=== PATIENT | female | born 1975 | race Caucasian/White ===

== ENCOUNTER 2018-12-02 14:11 | Emergency (ER) | payer BC ==
[2018-12-02 16:14] LABS: ABS Basophils 0.1 10^3/ul (0-0.2); ABS Eosinophils 0.2 10^3/ul (0-0.6); ABS Lymphocytes 2.1 10^3/ul (1.0-4.8); ABS Monocytes 0.4 10^3/ul (0-0.8); ABS Neutrophils 4.5 10^3/ul (1.5-7.7); Eosinophil % 3.3 %; Hematocrit 36 % (35-47); Hemoglobin 11.7 g/dL (12.0-16.0); Lymphocyte % 28.4 %; Mean Corpuscular HGB Conc 33 g/dL (31-36); Mean Corpuscular Hemoglobin 25 pg (27-31); Mean Corpuscular Volume 78 fL (80-97); Mean Platelet Volume 8.4 fL (7.4-10.4); Nucleated Red Blood Cells % 0.1; Platelet Count 253 10^3/uL (150-450); Red Blood Count 4.62 10^6 /uL (3.70-4.87); Red Cell Distribution Width 17 % (10-15); White Blood Count 7.3 10^3/uL (3.5-10.8)
[2018-12-02 16:31] LABS: Albumin 4.5 g/dL (3.2-5.2); Albumin/Globulin Ratio 1.6 (1-3); BUN/Creatinine Ratio 10.5 (8-20); Calcium 9.3 mg/dL (8.6-10.3); EGFR Non-African American 83.5 (>60); Globulin 2.9 g/dL (2-4); Potassium 4.4 mmol/L (3.5-5.0); Total Bilirubin 0.3 mg/dL (0.2-1.0); Total Protein 7.4 g/dL (6.4-8.9)
--- NOTE | 2018-12-02 16:48 | ED ---
Headache - HPI Summary HPI Summary: The patient is a 43 y/o F presenting to [facility] with a chief complaint of gradual onset and intermittent HAs for the last 2-3 weeks. She reports that, upon initial symptoms beginning, she was at work and had a sudden, severe BENITEZ in the temples that eventually became diffuse, and she also became lightheaded, tremulous, and nauseated. The next day, she still had a BENITEZ, so she visited her PCP, and was given Imitrex, but then had to continue with Excedrin, which did help to alleviate the pain. Then she woke up the next morning with another headache, but this time there were visual changes in addition to the other symptoms, in which she could see light out of the left eye, but she was unable to visualize any objects. She was then dx with migraines. After about a week had passed without a BENITEZ, she had another BENITEZ with the same symptoms as before without the visual changes, which has persisted into now. She additionally c/o numbness in the face when the HAs are occurring. She denies photophobia, neck pain, fever, chills, erythema of eyes, sore throat, CP, SOB, cough, abdominal pain, N/V, dysuria, hematuria, myalgia, edema, rash, or dizziness. The dull pain is currently rated 5/10 in severity. Medications include progesterone. Hx of DM (when younger), glasses. FHx of cardiac disease, HTN, DM. Current every day smoker, no EtOH, no substance use. - History Of Current Complaint Chief Complaint: EDHeadache Stated Complaint: HEADACHE PER PT Time Seen by Provider: 12/02/18 15:28 Hx Obtained From: Patient Onset/Duration: Gradual Onset, Started weeks ago, Still Present Initially Headache Was: Moderate Currently Pain Is: Current Pain Scale(0-10)= - 5 Timing: Weeks Character: Throbbing Location of Headache: Diffuse Aggravating Factor: Nothing Allevating Factors: Other (Noted In Comments) - Excedrin to some relief Associated Signs And Symptoms: Other (Noted In Comments) - POSITIVE: visual changes, numbness in face with HAs; NEGATIVE: photophobia, neck pain, fever, chills, erythema of eyes, sore throat, CP, SOB, cough, abdominal pain, N/V, dysuria, hematuria, myalgia, edema, rash, dizziness - Allergies/Home Medications Allergies/Adverse Reactions: Allergies Allergy/AdvReac Type Severity Reaction Status Date / Time acetaminophen Allergy Headache Verified 12/02/18 14:21 [From Darvocet-N] propoxyphene Allergy Headache Verified 12/02/18 14:21 [From Darvocet-N] Home Medications: Home Medications SUMAtriptan succinate [Sumatriptan Succinate] 100 mg PO DAILY 12/02/18 [History Confirmed 12/02/18] PMH/Surg Hx/FS Hx/Imm Hx Endocrine/Hematology History: Reports: Hx Diabetes - no meds (diet controlled) Cardiovascular History: Denies: Hx Hypertension Sensory History: Reports: Hx Contacts or Glasses Opthamlomology History: Reports: Hx Contacts or Glasses - Surgical History Surgical History: Yes Surgery Procedure, Year, and Place: gastric bypass, cholecystectomy, ovarian cyst removal Infectious Disease History: No Infectious Disease History: Denies: Traveled Outside the [place] in Last 30 Days - Family History Known Family History: Positive: Cardiac Disease - father side, CAD, Hypertension , Diabetes, Other - [place] - Social History Alcohol Use: None Hx Substance Use: No Substance Use Type: Reports: None Hx Tobacco Use: Yes Smoking Status (MU): Current Every Day Smoker Review of Systems Positive: Other - tremulous. Negative: Fever, Chills Positive: Other - visual changes in left eye. Negative: Photophobia, Erythema Negative: Sore Throat Negative: Chest Pain Negative: Shortness Of Breath, Cough Positive: Nausea. Negative: Abdominal Pain, Vomiting Negative: dysuria, hematuria Positive: Other - NEGATIVE: neck pain. Negative: Myalgia, Edema Negative: Rash Neurological: Other - POSITIVE: lightheadedness; NEGATIVE: dizziness Positive: Headache, Numbness - during BENITEZ All Other Systems Reviewed And Are Negative: Yes Physical Exam - Summary Physical Exam Summary: Constitutional: Well-developed, Well-nourished, Alert. (-) Distressed Skin: Warm, Dry HENT: Normocephalic; Atraumatic Eyes: Conjunctiva normal Neck: Musculoskeletal ROM normal neck. (-) JVD, (-) Stridor, (-) Tracheal deviation Cardio: Rhythm regular, rate normal, Heart sounds normal; Intact distal pulses; The pedal pulses are 2+ and symmetric. Radial pulses are 2+ and symmetric. (-) Murmur Pulmonary/Chest wall: Effort normal. (-) Respiratory distress, (-) Wheezes, (-) Rales Abd: Soft. (-) Tenderness, (-) Distension, (-) Guarding, (-) Rebound Musculoskeletal: (-) Edema Lymph: (-) Cervical adenopathy Neuro: Alert, Oriented x3, Strength normal, Cranial nerves II-XII are grossly intact. (-) Dysmetria, (-) Nystagmus, (-) Ataxia by finger to nose testing, (-) Sensory deficit. GCS: 15. Psych: Mood and affect Normal Triage Information Reviewed: Yes Vital Signs On Initial Exam: Initial Vitals Temp Pulse Resp BP Pulse Ox 98.4 F 66 18 126/72 100 12/02/18 14:20 12/02/18 14:20 12/02/18 14:20 12/02/18 14:20 12/02/18 14:20 Vital Signs Reviewed: Yes - Sterling Coma Scale Best Eye Response: 4 - Spontaneous Best Motor Response: 6 - Obeys Commands Best Verbal Response: 5 - Oriented Coma Scale Total: 15 Diagnostics - Vital Signs Vital Signs Temp Pulse Resp BP Pulse Ox 12/02/18 14:20 98.4 F 66 18 126/72 100 - Laboratory Lab Results: Lab Results 12/02/18 12/02/18 12/02/18 Range/Units 16:07 16:07 16:07 WBC 7.3 (3.5-10.8) 10^3/uL RBC 4.62 (3.70-4.87) 10^6 /uL Hgb 11.7 L (12.0-16.0) g/dL Hct 36 (35-47) % MCV 78 L (80-97) fL MCH 25 L (27-31) pg MCHC 33 (31-36) g/dL RDW 17 H (10-15) % Plt Count 253 (150-450) 10^3/uL MPV 8.4 (7.4-10.4) fL Neut % (Auto) 61.7 % Lymph % (Auto) 28.4 % [place] % (Auto) 5.7 % Eos % (Auto) 3.3 % Baso % (Auto) 0.9 % Absolute Neuts (auto) 4.5 (1.5-7.7) 10^3/ul Absolute Lymphs (auto) 2.1 (1.0-4.8) 10^3/ul Absolute Monos (auto) 0.4 (0-0.8) 10^3/ul Absolute Eos (auto) 0.2 (0-0.6) 10^3/ul Absolute Basos (auto) 0.1 (0-0.2) 10^3/ul Absolute Nucleated RBC 0.0 10^3/ul Nucleated RBC % 0.1 Sodium 138 (135-145) mmol/L Potassium 4.4 (3.5-5.0) mmol/L Chloride 109 (101-111) mmol/L Carbon Dioxide 23 (22-32) mmol/L Anion Gap 6 (2-11) mmol/L BUN 8 (6-24) mg/dL Creatinine 0.76 (0.51-0.95) mg/dL Est GFR ( Amer) 101.0 (>60) Est GFR (Non-Af Amer) 83.5 (>60) BUN/Creatinine Ratio 10.5 (8-20) Glucose 89 (70-100) mg/dL Lactic Acid 0.8 (0.5-2.0) mmol/L Calcium 9.3 (8.6-10.3) mg/dL Total Bilirubin 0.30 (0.2-1.0) mg/dL AST 11 L (13-39) U/L ALT 11 (7-52) U/L Alkaline Phosphatase 57 (34-104) U/L Troponin I 0.00 (<0.04) ng/mL Total Protein 7.4 (6.4-8.9) g/dL Albumin 4.5 (3.2-5.2) g/dL Globulin 2.9 (2-4) g/dL Albumin/Globulin Ratio 1.6 (1-3) Result Diagrams: 12/02/18 16:07 12/02/18 16:07 Lab Statement: Any lab studies that have been ordered have been reviewed, and results considered in the medical decision making process. - CT Head/Neck CTA CT Interpretation Completed By: Radiologist Summary of CT Findings: No acute findings. ED physician has reviewed this report. Re-Evaluation - Re-Evaluation First Eval Re-Evaluation Time: 19:30 Comment: I discussed results and discharge with the patient. We additionally discussed her thyroid nodules, which she is aware of. Headache Course/Dx - Course Course Of Treatment: Patient is a 43 y/o F with cc of reoccurring HAs that are diffuse but gradually onset with associated symptoms of lightheadedness, tremors , and nausea. Recent dx of migraines after having visual changes in the left eye with BENITEZ. Current smoker. Upon physical exam, the patient exhibits no acute abnormalities, and neuro exam is negative for any deficits. In the ED course, the patient was administered Ns, Reglan, Toradol, and Benadryl. Blood work reveals Hgb of 11.7, MCV of 78, MCH of 25, RDW of 17, and AST of 11. UA reveals specific gravity of 1.004 but otherwise normal. CTA Head/Neck is negative. Given the critertia and reoccurance of new onset migraine headaches, I do no suspect subarrachonid hemorrhage. There are not thunderclap headaches, and they always occur with a gradual onset. There are also complete resolution periods of headaches. I also discussed her thyroid nodules with her; she is aware of them as she gets them checked once a year. She is diagnosed with headache, transient visual loss, and thyroid nodules. She will be discharged home with follow up with PCP and neurology in 1-2 weeks. She agrees with this plan. - Diagnoses Provider Diagnoses: Headache, Transient visual loss, Thyroid nodule Discharge - Sign-Out/Discharge Documenting (check all that apply): Patient Departure - Patient will be discharged home. Patient Received Moderate/Deep Sedation with Procedure: No - Discharge Plan Condition: Stable Disposition: HOME Prescriptions: Ketorolac TAB * [Toradol TAB *] 10 mg PO Q6H PRN #10 tab PRN Reason: Migraine Headache Metoclopramide TAB* [Reglan TAB*] 10 mg PO Q6H PRN #10 tab PRN Reason: Migraine Headache Ondansetron ODT TAB* [Zofran 4 MG Odt TAB*] 4 mg PO Q8H PRN #9 tab.odt PRN Reason: Pain-Severe/Temp >/= 100.4 Patient Education Materials: Migraine Headache (ED) Forms: *Work Release Referrals: Durga Rodriguez DO [Primary Care Provider] - 3 Days Omid Pham MD [Medical Doctor] - 2 Weeks Additional Instructions: Please take medications as prescribed. Follow up with your primary care provider and neurology in 1-2 weeks. RETURN TO THE EMERGENCY DEPARTMENT FOR CHANGING OR WORSENING SYMPTOMS. - Billing Disposition and Condition Condition: STABLE Disposition: Home - Attestation Statements Document Initiated by Scribe: Yes Documenting Scribe: Pat German Provider For Whom Jeanne is Documenting (Include Credential): Dr. John Begum MD Scribe Attestation: Pat Delaney, scribed for Dr. John Begum MD on 12/02/18 at 1936. Status of Scribe Document: Ready
[2018-12-02 17:40] LABS: Urine Appearance Clear; Urine Bilirubin Negative (Negative); Urine Blood Negative (Negative); Urine Color Straw; Urine Glucose Negative (Negative); Urine Ketones Negative (Negative); Urine Nitrite Negative (Negative); Urine Protein Negative (Negative); Urine Specific Gravity 1.004 (1.010-1.030); Urine Urobilinogen Negative (Negative)
[2018-12-02] MEDS ORDERED: diPHENhydraMINE IV* 50 MG/ML 1 ml VIAL (BENADRYL) SLOW PUSH ONE (18:09)
[2018-12-02] MEDS ORDERED: Metoclopramide IV* 5 MG/ML 2 ML VIAL IV SLOW PU ONE (18:09)
[2018-12-02] MEDS ORDERED: NS 0.9% 1000 ML** 1,000 ML IV ONE (18:09)
[2018-12-02] MEDS ORDERED: Iodixanol* (CONTRAST) 320 MG/ML 100 ML SDV IV ONE (18:13)
[2018-12-02] MEDS ORDERED: Ketorolac INJ* 30 MG/ML 1 ML VIAL IV PUSH ONE (19:29)
[2018-12-02 19:44] VITALS: BP 135/90
== END 2018-12-02 19:43 | disposition home or self-care (01) ==
LOC: ED 14:11
DX: R51 Headache (principal); H53.122 Transient visual loss, left eye; E04.1 Nontoxic single thyroid nodule; E11.9 Type 2 diabetes mellitus without complications; F17.210 Nicotine dependence, cigarettes, uncomplicated; Z88.6 Allergy status to analgesic agent; Z79.899 Other long term (current) drug therapy
CPT/HCPCS: 36415; 70496; 70498; 80053; 81003; 83605; 84484; 85025; 96361; 96374; 96375; 99284; J1200; J1885; J2765; Q9967